=== PATIENT | female | born 1950 | race Two or more races ===

== ENCOUNTER 2022-10-17 07:58 | Emergency (ER) | payer OTHER ==
[~2022-10-17] VITALS: Ht 165.1 cm; Wt 64.9 kg
[2022-10-17] MEDS ORDERED: LIPITOR20 MG PO (08:05)
[2022-10-17] MEDS ORDERED: LOSARTAN POTASS50 MG PO (08:06)
== END 2022-10-17 10:03 | disposition home or self-care (01) ==
LOC: ER 07:58
DX: U07.1 COVID-19 (principal); R05.9 Cough, unspecified

== ENCOUNTER 2023-05-12 10:46 | Emergency (ER) | payer OTHER ==
[~2023-05-12] VITALS: Ht 162.6 cm; Wt 63.5 kg
[~2023-05-12 10:46] MED LIST: LIPITOR20 MG PO; LOSARTAN POTASS50 MG PO
== END 2023-05-12 13:01 | disposition home or self-care (01) ==
LOC: ER 10:46
DX: R05.9 Cough, unspecified (principal); I10 Essential (primary) hypertension

== ENCOUNTER 2023-11-18 10:29 | Emergency (ER) | payer OTHER ==
[~2023-11-18] VITALS: Ht 172.7 cm; Wt 74.8 kg
[2023-11-18] MEDS ORDERED: 0.9 % SODIUM CHLORIDE 1,000 ML IV SCH (12:00)
[2023-11-18 12:07] LABS: HEMATOCRIT 40.3 % (36.0-45.00); HEMOGLOBIN 13.5 g/dL (12.0-15.00); MEAN CELL VOLUME 88.9 fL (80.00-100.00); MEAN CORPUSCULAR HEMOGLOBIN 29.8 pg (27.00-32.0); MEAN CORPUSCULAR HGB CONC 33.5 g/dl (32.0-36.0); PLATELET COUNT 270 K/uL (150-450); RED BLOOD COUNT 4.53 M/uL (4.00-6.00); RED CELL DISTRIBUTION WIDTH 13.3 % (11.5-14.5)
[2023-11-18 12:26] LABS: PH,URINE 5.5 (5.0-8.0); URINE APPEARANCE Clear; URINE BILIRRUBIN Small (NEGATIVE); URINE BLOOD Negative; URINE COLOR Dark Yellow; URINE GLUCOSE Negative (NEGATIVE); URINE LEUKOCYTE Negative; URINE NITRATE Negative; URINE PROTEIN Trace (NEGATIVE)
[2023-11-18 12:30] LABS: URINE EPITHELIAL CELLS 16.2 uL (0.0-38.8); URINE RBC 12.3 uL (0.0-20.8); URINE WBC 9.5 uL (0.0-23.2)
[2023-11-18 13:11] LABS: CALCIUM 9.6 mg/dL (8.5-10.1); CREATININE SERUM 0.89 mg/dL (0.55-1.02); GFR 62.35; POTASSIUM 4.61 mEq/L (3.5-5.1)
[2023-11-18] MEDS ORDERED: METRONIDAZOLE/SODIUM CHLORIDE 500 MG/100 ML PIGGYBACK IV ONE (15:00)
[2023-11-18] MEDS ORDERED: CIPROFLOXACIN IN 5 % DEXTROSE 400 MG/200 ML PIGGYBAG IV ONE (15:00)
== END 2023-11-18 16:23 | disposition home or self-care (01) ==
LOC: ER 10:30
PROVIDERS: Emergency Medicine
DX: K52.89 Other specified noninfective gastroenteritis and colitis (principal); E78.00 Pure hypercholesterolemia, unspecified; I10 Essential (primary) hypertension
CPT/HCPCS: 36415; 96365; 96366; 99282; J0744; J3490; J7030